=== PATIENT | female | born 1995 | race Caucasian/White ===

== ENCOUNTER 2016-06-29 08:45 | Emergency (ER) | payer MEDICAID ==
[~2016-06-29] VITALS: Ht 162.6 cm; Wt 88.7 kg
[2016-06-29] MEDS ORDERED: ONDANSETRON 2 MG/ML (Z0FRAN) 2 ML VIAL IV ONE (09:10)
[2016-06-29] MEDS ORDERED: KETOROLAC 30 MG/ML (TORADOL) 1 ML VIAL IV ONE (09:10)
[2016-06-29] MEDS ORDERED: diphenhydrAMINE 50 MG/ML INJ (BENADRYL) IV ONE (09:10)
[2016-06-29] MEDS ORDERED: DEXAMETHASONE 4 MG/ML (DECADRON) 5ml VIAL IV ONE (09:10)
--- NOTE | 2016-06-29 09:24 | NUR ---
pt declines iv at this time. cl
[2016-06-29] MEDS ORDERED: KETOROLAC 60 MG/2 ML (TORADOL) VIAL IM ONE (09:45)
--- NOTE | 2016-06-29 10:12 | NUR ---
PT ASKS IF SHE IS ALLOWED TO GO HOME AFTER INJECTION IM. STATES SHE IS REALLY TIRED. DR CONTE INFORMED OF PT COMMENT. CL
[2016-06-29 10:29] VITALS: BP 107/73
== END 2016-06-29 10:24 | disposition home or self-care (01) ==
LOC: ED 08:47
DX: G43.909 Migraine, unspecified, not intractable, without status migrainosus (principal)
CPT/HCPCS: 96372; 99284; J1885; 99282

== ENCOUNTER 2016-09-11 17:47 | Emergency (ER) | payer MEDICAID ==
[~2016-09-11] VITALS: Ht 162.6 cm; Wt 91.0 kg
[~2016-09-11 17:47] MED LIST: ONDAN4ODT PO; PNV91TAB3 PO; PROGESTERONE
--- NOTE | 2016-09-11 18:24 | NUR ---
Patient report received from Triage Nurse.
[2016-09-11] MEDS ORDERED: AZITHROMYCIN 250 MG TAB (ZITHROMAX) PO ONE (19:55)
[2016-09-11] MEDS ORDERED: ED- PROMETHAZINE/CODEINE SYRUP 6.25MG-10MG/5 ML (PHENERGAN) 118 ML BTL PO ONE (19:55)
[2016-09-11] MEDS ORDERED: AZIT250T PO (20:03)
[2016-09-11] MEDS ORDERED: PRCD5U PO (20:03)
[2016-09-11 20:30] VITALS: BP 122/80
== END 2016-09-11 20:30 | disposition home or self-care (01) ==
LOC: ED 17:48
DX: J40 Bronchitis, not specified as acute or chronic (principal); J02.9 Acute pharyngitis, unspecified; F17.210 Nicotine dependence, cigarettes, uncomplicated
CPT/HCPCS: 99282; A9270